=== PATIENT | male | born 1975 | race Caucasian/White ===

== ENCOUNTER 2016-11-01 16:45 | Inpatient (IN) | payer MEDICAID ==
[~2016-11-01] VITALS: Ht 180.3 cm; Wt 163.4 kg
[2016-11-01 21:08] LABS: BASOPHIL % 0.4 % (0-2); PLATELET COUNT 231 x10^3mcL (130-400)
[2016-11-01 21:09] LABS: CALCIUM 8.8 mg/dL (8.5-10.1); CARBON DIOXIDE 39.5 mmol/L (21-32); CHLORIDE SERUM 102 mmol/L (98-107); CREATININE SERUM 0.8 mg/dL (0.7-1.3); GFR1 > 60 mL/min; GLUCOSE SERUM 88 mg/dL (74-106); POTASSIUM SERUM 4.4 mmol/L (3.5-5.1); SODIUM SERUM 141 mmol/L (136-145)
[2016-11-01 21:10] LABS: RED CELL DISTRIBUTION WIDTH 18.7 % (11.5-14.5)
[2016-11-01 21:12] LABS: ALKALINE PHOSPHATASE 76 U/L (46-116); ALT/SGPT 25 U/L (16-63); AST/SGOT 23 U/L (15-37); BILIRUBIN TOTAL 0.7 mg/dL (0.20-1.00); HDL CHOLESTEROL 39 mg/dL (40-60); TOTAL PROTEIN, SERUM 7.6 g/dL (6.4-8.2); URIC ACID 6.3 mg/dL (3.5-7.2)
[2016-11-01 21:23] LABS: ALBUMIN 2.9 g/dL (3.4-5.0); CHOLESTEROL 127 mg/dL (<200)
[2016-11-01] MEDS ORDERED: ASPIR 8181 MG PO (21:46)
[2016-11-01] MEDS ORDERED: IBU-200200 MG PO (21:47)
[2016-11-01 22:57] VITALS: BP 151/86
[2016-11-02 00:01] LABS: T3 TOTAL 1.31 ng/mL
[2016-11-02 00:12] LABS: MAGNESIUM 2.1 mg/dL (1.8-2.4)
[2016-11-02 00:13] LABS: CHOLESTEROL/HDL RATIO 3.3
[2016-11-02 00:35] LABS: FREE T4 1.11 ng/dL (0.76-1.46); FREE THYROXINE INDEX 2.9 ug/dL (1.4-4.5); T4(THYROXINE) 8.8 ug/dL (4.7-13.3)
[2016-11-02 05:00] VITALS: BP 151/86
[2016-11-02 05:13] VITALS: BP 127/56
[2016-11-02 08:08] LABS: microscopic required? NO
[2016-11-02 09:15] LABS: urine erythrocyte NEGATIVE (NEGATIVE)
[2016-11-02 09:19] LABS: AMPHETAMINE QUAL UR NONE DETECTED (NEG <=1000)
[2016-11-02 09:49] VITALS: BP 137/83
[2016-11-02 13:41] VITALS: BP 116/69
[2016-11-02 17:21] VITALS: BP 121/64
[2016-11-02 20:09] VITALS: BP 117/63
[2016-11-03 05:25] VITALS: BP 107/63
[2016-11-03 06:38] LABS: BASOPHIL % 0.3 % (0-2); PLATELET COUNT 234 x10^3mcL (130-400)
[2016-11-03 06:42] LABS: CALCIUM 8.5 mg/dL (8.5-10.1); CARBON DIOXIDE 37.2 mmol/L (21-32); CHLORIDE SERUM 105 mmol/L (98-107); CREATININE SERUM 0.8 mg/dL (0.7-1.3); GFR1 > 60 mL/min; GLUCOSE SERUM 88 mg/dL (74-106); MAGNESIUM 2.2 mg/dL (1.8-2.4); PHOSPHOROUS 4.3 mg/dL (2.5-4.9); POTASSIUM SERUM 4.2 mmol/L (3.5-5.1); SODIUM SERUM 148 mmol/L (136-145)
[2016-11-03 06:53] LABS: RED CELL DISTRIBUTION WIDTH 18.6 % (11.5-14.5)
[2016-11-03 06:54] LABS: rbc morphology (normal/abnorm) ABNORMAL (NORMAL)
[2016-11-03 09:37] VITALS: BP 133/63
[2016-11-03 13:53] VITALS: BP 128/66
[2016-11-03 17:22] VITALS: BP 106/50
[2016-11-03 20:54] VITALS: BP 127/76
[2016-11-04 05:06] VITALS: BP 135/71
[2016-11-04 06:02] LABS: CARBON DIOXIDE 37.9 mmol/L (21-32); CHLORIDE SERUM 100 mmol/L (98-107); CREATININE SERUM 0.8 mg/dL (0.7-1.3); GFR1 > 60 mL/min; GLUCOSE SERUM 78 mg/dL (74-106); MAGNESIUM 2.2 mg/dL (1.8-2.4); POTASSIUM SERUM 4.1 mmol/L (3.5-5.1); SODIUM SERUM 141 mmol/L (136-145)
[2016-11-04 06:07] LABS: BASOPHIL % 0.3 % (0-2); PLATELET COUNT 218 x10^3mcL (130-400)
[2016-11-04 06:18] LABS: RED CELL DISTRIBUTION WIDTH 18.5 % (11.5-14.5)
[2016-11-04 09:41] VITALS: BP 109/56
[2016-11-04 13:16] VITALS: Ht 180.3 cm; Wt 163.4 kg
[2016-11-04 13:51] VITALS: BP 110/59
[2016-11-04 17:41] VITALS: BP 123/72
[2016-11-04 21:49] VITALS: BP 124/58
[2016-11-05 06:00] VITALS: BP 133/60
[2016-11-05 06:14] LABS: CALCIUM 8.6 mg/dL (8.5-10.1); CARBON DIOXIDE 36.3 mmol/L (21-32); CHLORIDE SERUM 106 mmol/L (98-107); CREATININE SERUM 0.8 mg/dL (0.7-1.3); GFR1 > 60 mL/min; GLUCOSE SERUM 77 mg/dL (74-106); POTASSIUM SERUM 4.2 mmol/L (3.5-5.1); SODIUM SERUM 146 mmol/L (136-145)
[2016-11-05 06:45] LABS: PLATELET COUNT 216 x10^3mcL (130-400)
[2016-11-05 07:15] LABS: RED CELL DISTRIBUTION WIDTH 18.1 % (11.5-14.5)
[2016-11-05 09:08] VITALS: BP 117/54
[2016-11-05 11:19] LABS: ATYPICAL LYMPH 1 %; BAND NEUTROPHIL 2 % (0-10); MONOCYTE 9 % (0-7); SEGMENTED NEUTROPHILS 66 % (37-75)
[2016-11-05 11:21] LABS: PLATELET MORPHOLOGY PLATELETS NORMAL; rbc morphology (normal/abnorm) ABNORMAL (NORMAL)
[2016-11-05 12:53] VITALS: BP 117/54
[2016-11-05] MEDS ORDERED: ZES10 PO (13:16)
[2016-11-05 13:17] VITALS: BP 117/54
== END 2016-11-05 14:40 | disposition home or self-care (01) | DRG 143 ==
LOC: ED 16:45 → DU 21:51 → MU 11-05 06:59
PROVIDERS: Emergency Medicine; ADMIT Family Medicine
DX: E66.2 Morbid (severe) obesity with alveolar hypoventilation (principal); J96.21 Acute and chronic respiratory failure with hypoxia; E43 Unspecified severe protein-calorie malnutrition; E87.0 Hyperosmolality and hypernatremia; Z68.43 Body mass index [BMI] 50.0-59.9, adult; I16.0 Hypertensive urgency; R73.03 Prediabetes; I83.93 Asymptomatic varicose veins of bilateral lower extremities; F15.21 Other stimulant dependence, in remission; Z79.82 Long term (current) use of aspirin
CPT/HCPCS: 82962; 83880; 84439; 94150; J1644; J1940; J3490; J7620; Q0092; Q9967

== ENCOUNTER 2017-01-31 18:11 | Inpatient (IN) | payer MEDICAID ==
[~2017-01-31] VITALS: Ht 172.7 cm; Wt 163.8 kg
[~2017-01-31 18:11] MED LIST: ASPIR 8181 MG PO; IBU-200200 MG PO; ZES10 PO
[2017-01-31 19:35] LABS: microscopic required? NO
[2017-01-31 19:51] LABS: CALCIUM 8.8 mg/dL (8.5-10.1); CARBON DIOXIDE 38.1 mmol/L (21-32); CHLORIDE SERUM 105 mmol/L (98-107); CREATININE SERUM 0.8 mg/dL (0.7-1.3); GFR1 > 60 mL/min; GLUCOSE SERUM 86 mg/dL (74-106); POTASSIUM SERUM 4.4 mmol/L (3.5-5.1); SODIUM SERUM 141 mmol/L (136-145)
[2017-01-31 19:52] LABS: urine erythrocyte NEGATIVE (NEGATIVE)
[2017-01-31 19:53] LABS: BASOPHIL % 0.7 % (0-2); PLATELET COUNT 275 x10^3mcL (130-400)
[2017-01-31 19:56] LABS: ALKALINE PHOSPHATASE 69 U/L (46-116); ALT/SGPT 22 U/L (16-63); AST/SGOT 17 U/L (15-37); BILIRUBIN TOTAL 0.36 mg/dL (0.20-1.00); TOTAL PROTEIN, SERUM 8.2 g/dL (6.4-8.2)
[2017-01-31 20:02] LABS: ALBUMIN 2.9 g/dL (3.4-5.0)
[2017-01-31 20:19] LABS: RED CELL DISTRIBUTION WIDTH 17.6 % (11.5-14.5)
[2017-01-31 22:35] VITALS: BP 147/80
[2017-01-31 22:41] VITALS: Ht 172.7 cm; Wt 163.8 kg
[2017-01-31 23:06] LABS: AMPHETAMINE QUAL UR NONE DETECTED (NEG <=1000)
[2017-01-31 23:11] LABS: MAGNESIUM 2.3 mg/dL (1.8-2.4); PHOSPHOROUS 2.8 mg/dL (2.5-4.9)
[2017-01-31 23:16] LABS: FREE T4 1.07 ng/dL (0.76-1.46); FREE THYROXINE INDEX 2.9 ug/dL (1.4-4.5); T4(THYROXINE) 8.4 ug/dL (4.7-13.3)
[2017-01-31 23:17] LABS: T3 TOTAL 1.14 ng/mL
[2017-02-01 06:00] VITALS: BP 148/73
[2017-02-01 09:01] VITALS: BP 151/80
[2017-02-01 13:20] VITALS: BP 134/71
[2017-02-01 16:13] VITALS: BP 153/83
[2017-02-01 20:50] VITALS: BP 161/89
[2017-02-02 05:37] VITALS: BP 126/59
[2017-02-02 06:35] LABS: BASOPHIL % 0.1 % (0-2); PLATELET COUNT 251 x10^3mcL (130-400)
[2017-02-02 06:37] LABS: RED CELL DISTRIBUTION WIDTH 17.4 % (11.5-14.5)
[2017-02-02 06:51] LABS: CALCIUM 8.6 mg/dL (8.5-10.1); CARBON DIOXIDE 37.5 mmol/L (21-32); CHLORIDE SERUM 102 mmol/L (98-107); CREATININE SERUM 0.8 mg/dL (0.7-1.3); GFR1 > 60 mL/min; GLUCOSE SERUM 92 mg/dL (74-106); MAGNESIUM 2.1 mg/dL (1.8-2.4); PHOSPHOROUS 3.7 mg/dL (2.5-4.9); POTASSIUM SERUM 3.9 mmol/L (3.5-5.1); SODIUM SERUM 142 mmol/L (136-145)
[2017-02-02 09:10] VITALS: BP 133/79
[2017-02-02 13:48] VITALS: BP 144/77
[2017-02-02] MEDS ORDERED: LEVAQUIN750 MG PO (15:18)
[2017-02-02] MEDS ORDERED: CULTURELLE1 EACH PO (15:19)
[2017-02-02 16:17] VITALS: BP 144/77
== END 2017-02-02 17:13 | disposition home or self-care (01) | DRG 501 ==
LOC: ED 18:11 → DU 21:06
PROVIDERS: Emergency Medicine; ADMIT Student in an Organized Health Care Education/Training Program
DX: N45.3 Epididymo-orchitis (principal); E44.0 Moderate protein-calorie malnutrition; R09.89 Other specified symptoms and signs involving the circulatory and respiratory systems; R73.03 Prediabetes; I10 Essential (primary) hypertension; E66.01 Morbid (severe) obesity due to excess calories; Z68.43 Body mass index [BMI] 50.0-59.9, adult
CPT/HCPCS: 84439; 87491; 87591; J0360; J1644; J1885; J1956; J2270; J7030; Q0092

== ENCOUNTER 2017-09-08 05:17 | Inpatient (IN) | payer OTHER ==
[~2017-09-08] VITALS: Ht 175.3 cm; Wt 171.2 kg
[~2017-09-08 05:17] MED LIST changes: +CULTURELLE1 EACH PO; +LEVAQUIN750 MG PO
[2017-09-08 06:18] LABS: BASOPHIL % 0.8 % (0-2); PLATELET COUNT 198 x10^3mcL (130-400); RED CELL DISTRIBUTION WIDTH 15.9 % (11.5-14.5)
[2017-09-08 06:28] LABS: CALCIUM 8.5 mg/dL (8.5-10.1); CHLORIDE SERUM 105 mmol/L (98-107); CREATININE SERUM 0.8 mg/dL (0.7-1.3); GFR1 > 60 mL/min; GLUCOSE SERUM 107 mg/dL (74-106); POTASSIUM SERUM 4.2 mmol/L (3.5-5.1); SODIUM SERUM 143 mmol/L (136-145)
[2017-09-08 06:33] LABS: ALKALINE PHOSPHATASE 92 U/L (46-116); ALT/SGPT 24 U/L (16-63); AST/SGOT 19 U/L (15-37); BILIRUBIN TOTAL 0.3 mg/dL (0.20-1.00); TOTAL PROTEIN, SERUM 7.4 g/dL (6.4-8.2)
[2017-09-08 06:45] LABS: ALBUMIN 2.9 g/dL (3.4-5.0)
[2017-09-08 06:49] LABS: AMYLASE 49 U/L (25-115); CHOLESTEROL 168 mg/dL (<200); HDL CHOLESTEROL 50 mg/dL (40-60); LIPASE 107 IU/L (73-393)
[2017-09-08 10:47] LABS: CHOLESTEROL/HDL RATIO 3.2; MAGNESIUM 2.2 mg/dL (1.8-2.4); PHOSPHOROUS 3.2 mg/dL (2.5-4.9)
[2017-09-08 10:53] LABS: FREE T4 0.92 ng/dL (0.76-1.46); FREE THYROXINE INDEX 2.2 ug/dL (1.4-4.5); T4(THYROXINE) 6.8 ug/dL (4.7-13.3)
[2017-09-08 11:00] VITALS: BP 150/82
[2017-09-08 12:14] LABS: T3 TOTAL 1.2 ng/mL
[2017-09-08 13:15] VITALS: BP 150/82
[2017-09-08 16:50] VITALS: BP 134/77
[2017-09-08 20:41] VITALS: BP 127/68
[2017-09-09 05:58] VITALS: BP 107/54
[2017-09-09 06:27] LABS: AMPHETAMINE QUAL UR NONE DETECTED (NEG <=1000)
[2017-09-09 07:56] VITALS: BP 132/88
[2017-09-09 11:50] VITALS: BP 128/82
[2017-09-09 15:40] VITALS: BP 123/83
[2017-09-09 19:24] VITALS: BP 110/63
[2017-09-09 23:18] VITALS: BP 126/70
[2017-09-10 03:06] VITALS: BP 111/55
[2017-09-10 05:18] LABS: BASOPHIL % 0.3 % (0-2); PLATELET COUNT 218 x10^3mcL (130-400)
[2017-09-10 05:22] LABS: RED CELL DISTRIBUTION WIDTH 16.3 % (11.5-14.5)
[2017-09-10 05:33] LABS: CALCIUM 8.5 mg/dL (8.5-10.1); CARBON DIOXIDE 38.2 mmol/L (21-32); CHLORIDE SERUM 105 mmol/L (98-107); CREATININE SERUM 0.7 mg/dL (0.7-1.3); GFR1 > 60 mL/min; GLUCOSE SERUM 135 mg/dL (74-106); MAGNESIUM 2.5 mg/dL (1.8-2.4); PHOSPHOROUS 4.9 mg/dL (2.5-4.9); POTASSIUM SERUM 4.8 mmol/L (3.5-5.1); SODIUM SERUM 143 mmol/L (136-145)
[2017-09-10 07:45] VITALS: BP 147/82
[2017-09-10 08:04] VITALS: Ht 175.3 cm; Wt 171.2 kg
[2017-09-10 11:35] VITALS: BP 131/95
[2017-09-10 15:24] VITALS: BP 140/96
[2017-09-10 19:55] VITALS: BP 145/92
[2017-09-11] VITALS (7 sets, daily range): BP systolic 115–159; BP diastolic 70–90
[2017-09-11 05:20] LABS: CALCIUM 8.4 mg/dL (8.5-10.1); CHLORIDE SERUM 107 mmol/L (98-107); CREATININE SERUM 0.7 mg/dL (0.7-1.3); GFR1 > 60 mL/min; GLUCOSE SERUM 99 mg/dL (74-106); MAGNESIUM 2.4 mg/dL (1.8-2.4); PHOSPHOROUS 4.4 mg/dL (2.5-4.9); POTASSIUM SERUM 4.3 mmol/L (3.5-5.1); SODIUM SERUM 144 mmol/L (136-145)
[2017-09-11 05:23] LABS: BASOPHIL % 0.6 % (0-2); PLATELET COUNT 204 x10^3mcL (130-400); RED CELL DISTRIBUTION WIDTH 16.6 % (11.5-14.5)
[2017-09-11 05:24] LABS: CARBON DIOXIDE 40.9 mmol/L (21-32)
[2017-09-11 15:29] LABS: CALCIUM 8.5 mg/dL (8.5-10.1); CHLORIDE SERUM 104 mmol/L (98-107); CREATININE SERUM 0.8 mg/dL (0.7-1.3); GFR1 > 60 mL/min; GLUCOSE SERUM 89 mg/dL (74-106); POTASSIUM SERUM 3.9 mmol/L (3.5-5.1); SODIUM SERUM 146 mmol/L (136-145)
[2017-09-11 15:37] LABS: CARBON DIOXIDE 43.6 mmol/L (21-32)
[2017-09-12 06:53] LABS: CALCIUM 8.2 mg/dL (8.5-10.1); CHLORIDE SERUM 105 mmol/L (98-107); CREATININE SERUM 0.7 mg/dL (0.7-1.3); GFR1 > 60 mL/min; GLUCOSE SERUM 96 mg/dL (74-106); MAGNESIUM 2.4 mg/dL (1.8-2.4); POTASSIUM SERUM 3.7 mmol/L (3.5-5.1); SODIUM SERUM 143 mmol/L (136-145)
[2017-09-12 06:57] LABS: CARBON DIOXIDE 40.6 mmol/L (21-32)
[2017-09-12 07:01] LABS: BASOPHIL % 0.5 % (0-2); PLATELET COUNT 182 x10^3mcL (130-400)
[2017-09-12 07:53] LABS: RED CELL DISTRIBUTION WIDTH 16.2 % (11.5-14.5)
[2017-09-12 08:37] VITALS: BP 133/85
[2017-09-12 13:09] VITALS: BP 152/101
[2017-09-12 17:01] VITALS: BP 150/81
[2017-09-12 17:02] VITALS: BP 97/57
[2017-09-12 21:03] VITALS: BP 127/70
[2017-09-13 05:46] VITALS: BP 116/72
[2017-09-13 06:14] LABS: CALCIUM 8.4 mg/dL (8.5-10.1); CARBON DIOXIDE 38.8 mmol/L (21-32); CHLORIDE SERUM 119 mmol/L (98-107); CREATININE SERUM 0.7 mg/dL (0.7-1.3); GFR1 > 60 mL/min; GLUCOSE SERUM 86 mg/dL (74-106); POTASSIUM SERUM 3.6 mmol/L (3.5-5.1); SODIUM SERUM 125 mmol/L (136-145)
[2017-09-13 07:04] LABS: BASOPHIL % 0.2 % (0-2); PLATELET COUNT 178 x10^3mcL (130-400)
[2017-09-13 07:21] LABS: RED CELL DISTRIBUTION WIDTH 15.8 % (11.5-14.5)
[2017-09-13] MEDS ORDERED: PRINIVIL20 MG PO (07:35)
[2017-09-13] MEDS ORDERED: ECO81 PO (07:45)
[2017-09-13 08:19] VITALS: BP 135/83
[2017-09-13 10:16] VITALS: BP 135/83
== END 2017-09-13 11:54 | disposition home or self-care (01) | DRG 133 ==
LOC: ED 05:17 → DU 09:58 → IC 09:58 → DU 11:00 → IC 09-09 06:22 → DU 09-11 11:27
PROVIDERS: Emergency Medicine; Family Medicine
PROC: 5A09457 Assistance with Respiratory Ventilation, 24-96 Consecutive Hours, Continuous Positive Airway Pressure (ICD-10-PCS; 2017-09-08)
PROC: 5A09357 Assistance with Respiratory Ventilation, Less than 24 Consecutive Hours, Continuous Positive Airway Pressure (ICD-10-PCS; principal; 2017-09-11)
DX: J96.21 Acute and chronic respiratory failure with hypoxia (principal); E87.2 Acidosis; I31.3 Pericardial effusion (noninflammatory); E44.0 Moderate protein-calorie malnutrition; K81.9 Cholecystitis, unspecified; I27.20 Pulmonary hypertension, unspecified; E66.2 Morbid (severe) obesity with alveolar hypoventilation; M94.0 Chondrocostal junction syndrome [Tietze]; C62.92 Malignant neoplasm of left testis, unspecified whether descended or undescended; Z68.43 Body mass index [BMI] 50.0-59.9, adult; I45.10 Unspecified right bundle-branch block; I51.7 Cardiomegaly; J96.22 Acute and chronic respiratory failure with hypercapnia; R73.9 Hyperglycemia, unspecified; T38.0X5A Adverse effect of glucocorticoids and synthetic analogues, initial encounter; Y92.89 Other specified places as the place of occurrence of the external cause; I70.209 Unspecified atherosclerosis of native arteries of extremities, unspecified extremity
CPT/HCPCS: 36600; 83880; 84439; 85378; 94150; 97110-GP; 97116-GP; 97530-GP; J1644; J1885; J1940; J1956; J2920; J2930; J7030; J7620; Q0092; Q9967

== ENCOUNTER 2018-03-13 11:34 | Inpatient (IN) | payer OTHER ==
[~2018-03-13] VITALS: Ht 180.3 cm; Wt 193.7 kg
[~2018-03-13 11:34] MED LIST changes: +ECO81 PO; +PRINIVIL20 MG PO
[2018-03-13 12:14] LABS: microscopic required? NO
[2018-03-13 12:23] LABS: BASOPHIL % 0.3 % (0-2); PLATELET COUNT 279 x10^3mcL (130-400)
[2018-03-13 12:31] LABS: urine erythrocyte NEGATIVE (NEGATIVE)
[2018-03-13 12:47] LABS: CALCIUM 8.4 mg/dL (8.5-10.1); CHLORIDE SERUM 103 mmol/L (98-107); CREATININE SERUM 0.9 mg/dL (0.7-1.3); GFR1 > 60 mL/min; GLUCOSE SERUM 81 mg/dL (74-106); POTASSIUM SERUM 4.6 mmol/L (3.5-5.1); SODIUM SERUM 144 mmol/L (136-145)
[2018-03-13 12:51] LABS: ALKALINE PHOSPHATASE 78 U/L (46-116); ALT/SGPT 19 U/L (16-63); AST/SGOT 21 U/L (15-37); BILIRUBIN TOTAL 0.49 mg/dL (0.20-1.00)
[2018-03-13 13:00] LABS: ALBUMIN 2.6 g/dL (3.4-5.0); CHOLESTEROL 82 mg/dL (<200); HDL CHOLESTEROL 32 mg/dL (40-60); TOTAL PROTEIN, SERUM 8.3 g/dL (6.4-8.2)
[2018-03-13 16:47] VITALS: BP 130/87
[2018-03-13 16:50] LABS: CHOLESTEROL/HDL RATIO 2.6
[2018-03-13 18:18] VITALS: BP 128/67
[2018-03-14 03:37] VITALS: BP 104/45
[2018-03-14 05:36] LABS: CALCIUM 8.6 mg/dL (8.5-10.1); CHLORIDE SERUM 99 mmol/L (98-107); CREATININE SERUM 0.9 mg/dL (0.7-1.3); GFR1 > 60 mL/min; GLUCOSE SERUM 95 mg/dL (74-106); POTASSIUM SERUM 4.4 mmol/L (3.5-5.1); SODIUM SERUM 142 mmol/L (136-145)
[2018-03-14 05:37] LABS: BASOPHIL % 0.2 % (0-2); PLATELET COUNT 255 x10^3mcL (130-400)
[2018-03-14 05:38] LABS: CARBON DIOXIDE 43.8 mmol/L (21-32)
[2018-03-14 06:00] LABS: RED CELL DISTRIBUTION WIDTH 16.7 % (11.5-14.5)
[2018-03-14 08:30] VITALS: BP 134/56
[2018-03-14 10:31] VITALS: Ht 180.3 cm; Wt 193.7 kg
[2018-03-14 12:30] VITALS: BP 130/55
[2018-03-14 16:53] VITALS: BP 93/63
[2018-03-14 19:30] VITALS: BP 129/55
[2018-03-14 23:35] VITALS: BP 124/60
[2018-03-15 05:57] VITALS: BP 121/52
[2018-03-15 07:24] LABS: BASOPHIL % 0.2 % (0-2); PLATELET COUNT 269 x10^3mcL (130-400)
[2018-03-15 07:36] LABS: RED CELL DISTRIBUTION WIDTH 16.2 % (11.5-14.5)
[2018-03-15 08:11] LABS: CALCIUM 8.7 mg/dL (8.5-10.1); CHLORIDE SERUM 98 mmol/L (98-107); CREATININE SERUM 0.9 mg/dL (0.7-1.3); GFR1 > 60 mL/min; GLUCOSE SERUM 73 mg/dL (74-106); POTASSIUM SERUM 3.7 mmol/L (3.5-5.1); SODIUM SERUM 142 mmol/L (136-145)
[2018-03-15 09:01] VITALS: BP 103/60
[2018-03-15 12:33] VITALS: BP 107/68
[2018-03-15 16:18] VITALS: BP 114/74
[2018-03-15 19:15] VITALS: BP 107/51
[2018-03-16 04:59] VITALS: BP 93/53
[2018-03-16 06:27] LABS: CALCIUM 8.4 mg/dL (8.5-10.1); CHLORIDE SERUM 100 mmol/L (98-107); CREATININE SERUM 0.8 mg/dL (0.7-1.3); GFR1 > 60 mL/min; GLUCOSE SERUM 81 mg/dL (74-106); POTASSIUM SERUM 4.1 mmol/L (3.5-5.1); SODIUM SERUM 141 mmol/L (136-145)
[2018-03-16 06:30] LABS: BASOPHIL % 0.2 % (0-2); PLATELET COUNT 240 x10^3mcL (130-400); RED CELL DISTRIBUTION WIDTH 16.6 % (11.5-14.5)
[2018-03-16 06:55] LABS: CARBON DIOXIDE 43.6 mmol/L (21-32)
[2018-03-16 08:50] VITALS: BP 104/53
[2018-03-16 13:12] VITALS: BP 115/58
[2018-03-16 13:39] VITALS: BP 102/57
[2018-03-16 17:32] VITALS: BP 102/55
[2018-03-16 21:55] VITALS: BP 112/56
[2018-03-17 05:21] VITALS: BP 111/64
[2018-03-17 06:27] LABS: BASOPHIL % 0.2 % (0-2); PLATELET COUNT 246 x10^3mcL (130-400)
[2018-03-17 06:35] LABS: CALCIUM 8.6 mg/dL (8.5-10.1); CARBON DIOXIDE 39.3 mmol/L (21-32); CHLORIDE SERUM 101 mmol/L (98-107); CREATININE SERUM 0.8 mg/dL (0.7-1.3); GFR1 > 60 mL/min; GLUCOSE SERUM 86 mg/dL (74-106); SODIUM SERUM 140 mmol/L (136-145)
[2018-03-17 07:04] LABS: RED CELL DISTRIBUTION WIDTH 16.1 % (11.5-14.5)
[2018-03-17 09:47] VITALS: BP 141/79
[2018-03-17 11:17] LABS: rbc morphology (normal/abnorm) ABNORMAL (NORMAL)
[2018-03-17 13:44] VITALS: BP 102/54
[2018-03-17 17:12] VITALS: BP 129/76
[2018-03-17 20:35] VITALS: BP 127/51
[2018-03-18 00:02] LABS: AMPHETAMINE QUAL UR NONE DETECTED (See below)
[2018-03-18 05:23] VITALS: BP 114/49
[2018-03-18 09:28] VITALS: BP 152/73
[2018-03-18 14:28] VITALS: BP 124/64
[2018-03-18 17:53] VITALS: BP 124/64
[2018-03-18 18:45] VITALS: BP 111/57
== END 2018-03-18 20:40 | DRG 139 ==
LOC: ED 11:34 → DU 15:34 → IC 15:34 → DU 03-15 01:07
PROVIDERS: Emergency Medicine; Internal Medicine
DX: J18.9 Pneumonia, unspecified organism (principal); J96.21 Acute and chronic respiratory failure with hypoxia; I50.33 Acute on chronic diastolic (congestive) heart failure; E44.0 Moderate protein-calorie malnutrition; E66.2 Morbid (severe) obesity with alveolar hypoventilation; Z68.43 Body mass index [BMI] 50.0-59.9, adult; J44.9 Chronic obstructive pulmonary disease, unspecified; J96.22 Acute and chronic respiratory failure with hypercapnia; F15.11 Other stimulant abuse, in remission; Z85.47 Personal history of malignant neoplasm of testis; Z91.14 Patient's other noncompliance with medication regimen; Z91.19 Patient's noncompliance with other medical treatment and regimen
CPT/HCPCS: 36600; 83880; 87804; 97110-GP; 97116-GP; J1940; J2550; J3490; J7030; J7613; J7620; J7644; Q0092; Q9967

== ENCOUNTER 2019-05-09 14:18 | Emergency (ER) | payer OTHER ==
[~2019-05-09] VITALS: Ht 180.3 cm; Wt 179.6 kg
[2019-05-09 14:41] VITALS: BP 149/68; Ht 180.3 cm; Wt 179.6 kg
== END 2019-05-09 17:25 | disposition home or self-care (01) ==
LOC: ED 14:18
DX: B34.9 Viral infection, unspecified (principal); J98.01 Acute bronchospasm; I10 Essential (primary) hypertension; E66.01 Morbid (severe) obesity due to excess calories; Z88.0 Allergy status to penicillin; Z85.47 Personal history of malignant neoplasm of testis
CPT/HCPCS: J7512; J7613; J7644